=== PATIENT | male | born 1975 | race Caucasian/White ===

== ENCOUNTER 2016-07-20 10:29 | Emergency (ER) | payer OTHER ==
[~2016-07-20] VITALS: Ht 190.5 cm; Wt 148.1 kg
[2016-07-20] MEDS ORDERED: SODIUM CHLORIDE FLUSH 10ML SYR IVF ONE (12:00)
[2016-07-20 12:07] LABS: BLOOD UREA NITROGEN 12 mg/dL (7-18)
[2016-07-20] MEDS ORDERED: OMNIPAQUE 350 MG/ML, 100ML BOTTLE ONE (13:07)
[2016-07-20] MEDS ORDERED: LIDOCAINE 1%, 20ML ONE (13:58)
[2016-07-20] MEDS ORDERED: AMPICILLIN/SULBACTAM 3 GM in SODIUM CHLORIDE 0.9% 100 ML IV ONE (14:00)
[2016-07-20] MEDS ORDERED: LIDOCAINE 1%, 20ML INFIL ONE (14:00)
[2016-07-20 15:01] VITALS: BP 142/78
== END 2016-07-20 15:12 | disposition home or self-care (01) ==
LOC: ED 11:08
DX: K02.9 Dental caries, unspecified (principal); K04.7 Periapical abscess without sinus; J45.909 Unspecified asthma, uncomplicated; F17.210 Nicotine dependence, cigarettes, uncomplicated; Z88.2 Allergy status to sulfonamides
CPT/HCPCS: 36415; 41800; 70487; 80048; 82040; 85025; 96365; 99285; J0295; Q9967

== ENCOUNTER 2018-04-11 09:05 | Emergency (ER) | payer OTHER ==
[~2018-04-11] VITALS: Ht 190.5 cm; Wt 158.6 kg
[2018-04-11] MEDS ORDERED: METHOCARBAMOL 750 MG TABLET PO ONE (10:00)
[2018-04-11] MEDS ORDERED: HYDROcodone/APAP 5/325 TABLET PO ONE (10:00)
--- NOTE | 2018-04-11 10:01 | NUR ---
BREAK NOTE: PT. IS RESTING WITHOUT CONCERNS. VSS. CALL LIGHT IS IN PLACE.
[2018-04-11] MEDS ORDERED: METHOCARBAMOL 750 MG TABLET ONE ×2 (10:24→10:28)
[2018-04-11] MEDS ORDERED: HYDROcodone/APAP 5/325 TABLET ONE (10:24)
[2018-04-11 10:31] VITALS: BP 131/88
== END 2018-04-11 11:03 | disposition home or self-care (01) ==
LOC: ED 10:50
DX: M50.90 Cervical disc disorder, unspecified, unspecified cervical region (principal); F17.210 Nicotine dependence, cigarettes, uncomplicated; I10 Essential (primary) hypertension; J45.909 Unspecified asthma, uncomplicated
CPT/HCPCS: 72125; 99284

== ENCOUNTER 2019-09-01 10:55 | Emergency (ER) | payer OTHER ==
[~2019-09-01] VITALS: Ht 190.5 cm; Wt 169.6 kg
[2019-09-01] MEDS ORDERED: SODIUM CHLORIDE FLUSH 10ML SYR IVF ONE (11:30)
[2019-09-01 11:52] LABS: BASOPHILS # (AUTO) 0.06 x10^3/uL (0-0.1); BASOPHILS % (AUTO) 1 % (0-1); EOSINOPHILS # (AUTO) 0.12 x10^3/uL (0-0.4); EOSINOPHILS % (AUTO) 1 % (1-7); LYMPHOCYTES % (AUTO) 27 % (22-44); MD NO; MEAN CORPUSCULAR HGB CONC 34.3 g/dL (33.2-36.2); MEAN CORPUSCULAR VOLUME 99.1 fL (81-97); MEAN PLATELET VOLUME 8.8 fL (7.4-10.4); MONOCYTES # (AUTO) 0.19 x10^3/uL (0.2-0.8); MONOCYTES % (AUTO) 2 % (2-9); NEUTROPHILS # (AUTO) 6.82 x10^3/uL (1.8-6.8); NEUTROPHILS % (AUTO) 69 % (42-75); PLATELET COUNT 216 x10^3/uL (130-400); RED BLOOD COUNT 4.89 x10^6/uL (4.38-5.82); RED CELL DISTRIBUTION WIDTH 13.7 % (9.4-14.8)
[2019-09-01 12:04] LABS: ALBUMIN 3.9 g/dL (3.4-5.0); ANION GAP 7 mmol/L (5-15); CALCIUM 9.3 mg/dL (8.5-10.1); CHLORIDE 107 mmol/L (98-107); CREATININE 0.98 mg/dL (0.7-1.3)
[2019-09-01 12:07] LABS: TROPONIN I < 0.015 ng/mL (0.000-0.045)
[2019-09-01] MEDS ORDERED: ALBUTEROL/IPRATROPIUM 2.5MG/0.5MG, 3 ML ONE (12:27)
[2019-09-01] MEDS ORDERED: ALBUTEROL/IPRATROPIUM 2.5MG/0.5MG, 3 ML NPPB ONE (12:30)
--- NOTE | 2019-09-01 12:59 | NUR ---
Note undone in EDM - 09/01/19 at 1303 by LA NENA PT A&OX4, RESP EVEN & UNLABORED, SPEECH CLEAR. LT LOWER LEG SWOLLEN, REDDENED. PT STATES LEG INFECTION HAS "BEEN GOING ON FOR 3 WEEKS". WAS SEEN IN [facility] ED 08/24/19. STILL TAKING CLINDAMYCIN - LAST DOSE THIS AM 0630. RAN OUT OF NAPROXEN. LT LOWER LEG HOT TO TOUCH. PEDAL PULSE STRONG & REG. REDNESS & SWELLING FROM DISTAL KNEE TO FOOT. +ROM LT FOOT, BUT PAIN W/ FLEXION.
[2019-09-01] MEDS ORDERED: HYDROmorphone 2 MG/ML, 1ML IM ONE (13:00)
[2019-09-01] MEDS ORDERED: ONDANSETRON ODT 4 MG PO ONE (13:00)
[2019-09-01] MEDS ORDERED: ONDANSETRON 2MG/ML, 2ML ONE (13:00)
[2019-09-01] MEDS ORDERED: HYDROmorphone 2 MG/ML, 1ML IVPush ONE (13:00)
[2019-09-01] MEDS ORDERED: ONDANSETRON 2MG/ML, 2ML IVPush ONE (13:00)
[2019-09-01] MEDS ORDERED: HYDROmorphone 1 MG/ML, 1ML INJ ONE (13:00)
[2019-09-01 13:32] VITALS: BP 158/84
== END 2019-09-01 14:07 | disposition home or self-care (01) ==
LOC: ED 12:09
DX: M94.0 Chondrocostal junction syndrome [Tietze] (principal); R10.9 Unspecified abdominal pain; R05 Cough; I10 Essential (primary) hypertension; J45.909 Unspecified asthma, uncomplicated; R94.31 Abnormal electrocardiogram [ECG] [EKG]
CPT/HCPCS: 36415; 71046; 80048; 82040; 83880; 84484; 85025; 93005; 94640; 96374; 96375; 99285; J1170; J2405

== ENCOUNTER 2020-04-30 12:02 | Emergency (ER) | payer OTHER ==
[~2020-04-30] VITALS: Ht 190.5 cm; Wt 167.3 kg
--- NOTE | 2020-04-30 12:13 | NUR ---
PT AMBULATED BACK TO ROOM WITHOUT DIFFICULTY. STATES HE MIGHT'VE "PULLED SOMETHING" TO R SIDE ON TUES AT WORK (WORKS [employer]). STATES, "IT MIGHT BE MY SCIATIC NERVE". HASN'T BEEN ABLE TO WORK SINCE. ERP AT BS NOW.
--- NOTE | 2020-04-30 12:30 | NUR ---
PT MEDICATED PER ORDERS. RV'WD POC WITH HIM.
[2020-04-30 14:10] VITALS: BP 154/94
--- NOTE | 2020-04-30 14:17 | NUR ---
BP WAS 170/142 UPON DISCHARGE (AND 190/98 IN TRIAGE). PT REPORTS MINIMAL PAIN, ONLY WITH MOVEMENT. ERP NOTIFIED. RECHECKED BP AGAIN, WAS 154/94. PER ERP, OKAY TO DISCHARGE PT. EMPHASIZED TO PT IMPORTANCE OF F/U WITH PCP FOR BP MANAGEMENT. D/C INSTRUCTIONS, MEDS & F/U APPT RV'WD WITH PT, HE VERBALIZES UNDERSTANDING. RX GIVEN X2. WORK NOTE PROVIDED. PT AMBULATED OUT OF ED WITHOUT DIFFICULTY.
== END 2020-04-30 14:15 | disposition home or self-care (01) ==
LOC: ED 12:22
DX: M54.16 Radiculopathy, lumbar region (principal); I10 Essential (primary) hypertension; J45.909 Unspecified asthma, uncomplicated; F17.200 Nicotine dependence, unspecified, uncomplicated
CPT/HCPCS: 72110; 99283; J7512